=== PATIENT | female | born 1965 | race American Indian/Alaskan Native ===

== ENCOUNTER 2018-07-12 14:34 | Emergency (ER) | payer MEDICARE ==
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
[2018-07-12] MEDS ORDERED: NACL 0.9% 1000 ML 1,000 ML IV ONE ×2 (15:06→15:08)
[2018-07-12 15:11] LABS: Basophils # (Auto) 0.1 K/mm3 (0.0-0.1); Basophils % (Auto) 0.9 % (0.0-1.8); Eosinophils # (Auto) 0.1 K/mm3 (0.0-0.4); Eosinophils % (Auto) 1.4 % (0.0-4.3); Hematocrit 35.9 % (30.3-42.9); Hemoglobin 12.1 gm/dl (10.1-14.3); Lymphocytes # (Auto) 2.1 K/mm3 (1.2-5.4); Lymphocytes % (Auto) 26.4 % (13.4-35.0); Mean Corpuscular HGB Conc 34 % (30-34); Mean Corpuscular Volume 86 fl (79-97); Monocytes # (Auto) 0.8 K/mm3 (0.0-0.8); Platelet Count 324 K/mm3 (140-440); Red Blood Count 4.16 M/mm3 (3.65-5.03); Red Cell Distribution Width 16.9 % (13.2-15.2)
[2018-07-12 15:29] LABS: Calcium 8.7 mg/dL (8.4-10.2)
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
[2018-07-12] MEDS ORDERED: SUBLIMAZE IV ONE (16:00)
[2018-07-12] MEDS ORDERED: CATAPRES PO ONE (16:36)
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
[2018-07-12] MEDS ORDERED: DILAUDID IV ONE (17:33)
[2018-07-12] MEDS ORDERED: DILAUDID ONE (17:37)
[2018-07-12 18:32] VITALS: BP 230/133
== END 2018-07-12 18:44 | disposition other institution (70) ==
LOC: ED 14:34
DX: T24.202A Burn of second degree of unspecified site of left lower limb, except ankle and foot, initial encounter (principal); X08.8XXA Exposure to other specified smoke, fire and flames, initial encounter; Y93.89 Activity, other specified; Y92.89 Other specified places as the place of occurrence of the external cause; Y99.8 Other external cause status
CPT/HCPCS: 36415; 71045; 80048; 85025; 96374; 96375; 99285; J1170; J3010; J7030